=== PATIENT | female | born 1960 | race American Indian/Alaskan Native ===

== ENCOUNTER 2019-02-04 09:24 | Emergency (ER) | payer OTHER ==
[2019-02-04 09:35] VITALS: BMI 29.2
[2019-02-04 10:38] VITALS: RESP 16; O2SAT 100
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
[2019-02-04 13:49] VITALS: BP 143/88; PULSE 69; TEMP 98.2
== END 2019-02-04 13:30 | disposition home or self-care (01) ==
LOC: H.ER 09:24
DX: S00.83XA Contusion of other part of head, initial encounter (principal); M54.5 Low back pain; V73.6XXA Passenger on bus injured in collision with car, pick-up truck or van in traffic accident, initial encounter; Z88.0 Allergy status to penicillin